=== PATIENT | male | born 2005 | race Caucasian/White ===

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

== ENCOUNTER 2025-09-14 04:09 | Emergency (ER) | payer OTHER, SELFPAY ==
[2025-09-14] VITALS (7 sets, daily range): BP systolic 113–137; BP diastolic 58–77; PULSE 60–77; RESP 14–16; TEMP 36.5–36.8; O2SAT 96–99; BMI 21.5
--- NOTE | 2025-09-14 04:34 | ECG_ITS ---
Test Reason : syncope seizrue Blood Pressure : */* mmHG Vent. Rate : 72 BPM Atrial Rate : 72 BPM P-R Int : 144 ms QRS Dur : 98 ms QT Int : 376 ms P-R-T Axes : 55 61 52 degrees QTcB Int : 411 ms Sinus rhythm with marked sinus arrhythmia Otherwise normal ECG When compared with ECG of 06-Feb-2023 17:11, No significant change was found Referred By: Generic ED Physician Electronically Signed By: Nima Yepez
[2025-09-14 05:06] LABS: MANUAL DIFF FLAG NO
[2025-09-14 05:07] LABS: Hematocrit 43.3 % (42.0-52.0); Hemoglobin 14.4 g/dl (14.0-18.0); Imm Gran Abs Auto 0.02 X10*3/uL (0.00-0.03); Imm Gran Pct Auto 0.2 % (0.0-0.4); Lymphocytes Absolute Auto 3.2 X10*3/uL (1.2-4.9); Mean Corpuscular HGB Conc 33.3 g/dl (31.0-36.0); Mean Corpuscular Hemoglobin 28.2 pg (27.0-33.0); Mean Corpuscular Volume 84.9 fL (80.0-98.0); NRBC Abs Auto 0.000 X10*3/uL (0.0-0.012); NRBC Pct Auto 0.0 /100WBC (0.0-0.2); Platelet Count 234 X10*3/uL (160-400); Red Blood Count 5.10 X10*6/uL (4.60-5.80); White Blood Count 8.8 X10*3/uL (4.8-10.8)
[2025-09-14 05:38] LABS: Troponin-I High Sensitivity < 2.7 ng/L (<3.5-35.0)
[2025-09-14 05:41] LABS: Alanine Aminotransferase 23 U/L (0-40); Albumin Level 4.7 g/dL (3.5-5.0); Alkaline Phosphatase 59 U/L (39-117); Anion Gap 14 (12-20); Aspartate Amino Transferase 26 U/L (5-37); Blood Urea Nitrogen 16 mg/dL (9-16); Calcium 8.8 mg/dL (8.4-10.2); Carbon Dioxide 23 mmol/L (22-29); Chloride 111 mmol/L (96-108); Creatinine Clr Calc Pharmacy 136.5; Estimated Glomerular Filt Rate > 60; Magnesium 2.0 mg/dL (1.6-2.6); Potassium 3.9 mmol/L (3.3-5.1); Sodium 144 mmol/L (135-145); Total Protein 7.1 g/dL (6.5-8.0)
--- OUTSIDE RECORDS SUMMARY | 2025-09-14 07:55 | XMS_ITS | Encounter Summary ---
Author Organization [facility] Address [address] [place] [address] Phone Care Team Providers Care Clinical Physician Assistant Name Role Phone Garrett Baez MD Primary Care Provider [phone] Encounter Details Date Type Department Care Team (Late st Contact Info) Description 07/17/2017 Conversion Encounter [facility] [address] [place] [address] Social History Tobacco Use Types Packs/Day Years Used Date Smoking Tobacco: Never Assessed Sex and Gender Information Value Date Recorded Sex Assigned at Not on file Legal Sex Male 4:59 PM EDT Gender Identity Not on file Sexual Orientation Not on file documented as of this encounter Plan of Treatment Not on file documented as of this encounter Visit Diagnoses Not on filedocumented in this encounter Care Teams Clinical Physician Assistant Relationship Specialty Start Date End Date Garrett Baez MD [address] [place] [address] PCP - General 07/11/17 02/18/23 documented as of this encounter
--- OUTSIDE RECORDS SUMMARY | 2025-09-14 07:55 | XMS_ITS | Encounter Summary ---
Author Organization [facility] Address [address] [place] [id number] Phone Care Team Providers Care Push Connector Assembler Name Role Phone Garrett Baez MD Primary Care Provider [phone] Encounter Details Date Type Department Care Team (Late st Contact Info) Description 05/05/2014 Documentation EM Family Medicine [address] [place] [address] Family Medicine, Physician [address] [place], [place] [id number] Social History Tobacco Use Types Packs/Day Years [...] on filedocumented in this encounter Care Teams Push Connector Assembler Relationship Specialty Start Date End Date Garrett Baez MD [address] [place] [address] NARENDRA Flores [id number] PCP - General 07/11/17 02/18/23 documented as of this encounter
--- OUTSIDE RECORDS SUMMARY | 2025-09-14 07:55 | XMS_ITS | Clinical Summary ---
Author Organization [facility] Address [address] [place] [address] Care Team Providers Care Review Rn Name Role Phone Betty Hernandez MD Primary Care Provider [phone] Source Comments PLEASE NOTE, if this patient is a minor, it may be UNLAWFUL to discuss sensitive information that is contained in these records (such as FAMILY PLANNING, MENTAL HEALTH or SUBSTANCE ABUSE) with the minor patient's parent or other person without the patient's specific authorization.[facility] Allergies Active Allergy Reactions Criticality Noted Date Comments Blackberry Hives 01/07/2017 Cherries Hives 01/07/2017 Medications ammonium lactate (LAC-HYDRIN) 12 % lotion Apply topically 2 (two) times daily 500 g 5 7 Active albuterol sulfate 90 mcg/actuation inhalerIndication s:Mild intermittent asthma without complication Inhale 2 Puffs into the lungs every 4 (four) hours as needed for shortness of breath or wheezing 18 g 3 1 Active ibuprofen 400 mg tablet Take 1 Tablet by mouth 4 (four) times daily as needed for fever or pain 60 Tablet 2 1 Active Active Problems Problem Noted Date Diagnosed Date Intercostal pain 09/07/2019 Overview (09/07/2019): Assessment & Plan (09/07/2019 3:59 PM EDT): eval by cardiology reassuring Likely msk Trial abuterol and ibuprofen prior to exercise Mom to let me know if wanting second opinion given her level of concern Social anxiety disorder 01/14/2017 Assessment & Plan (08/18/2021 4:17 PM EDT): Improved over the past few years. Doing more new things, expanding friend group and horizons. Had a therapist and a mentor until 2 years ago, doing well without Generalized anxiety disorder 01/04/2017 Overview (09/21/2018): Some reports of use of clonidine as early as 4yo. At 10yo mom reinitiated therapy for him to address some anxious feelings and behavior. Trial of Lexapro up to 40MG without effect Assessment & Plan (08/14/2021 6:09 PM EDT): Improved over the past few years. Doing more new things, expanding friend group and horizons. Had a therapist and a mentor until 2 years ago, doing well without Assessment & Plan (09/07/2019 3:54 PM EDT): SCARED evals child and parent congruent with generalized anxiety disorder, social phobia and panic attack Connected with Psych for eval and initiation of Lexapro in 2016 Now continuing with Primary care for monitoring off of medication Continue with therapy outpatient, IHT and labor utilization superintendent loosely established and need to be reconnected, mom agrees Continue off of lexapro at patient request F/u with therapist as planned, Assessment & Plan (09/21/2018 10:48 PM EDT): SCARED evals child and parent congruent with generalized anxiety disorder, social phobia and panic attack Connected with Psych for eval and initiation of Lexapro in 2016 Now continuing with Primary care for monitoring Continue with therapy outpatient, IHT and labor utilization superintendent now established Continue off of lexapro at patient request F/u with therapist as planned, Assessment & Plan (07/06/2018 10:33 PM EDT): SCARED evals child and parent congruent with generalized anxiety disorder, social phobia and panic attack Connected with Psych for eval and initiation of Lexapro in 2016 Now continuing with Primary care for monitoring Continue with therapy outpatient, IHT and labor utilization superintendent now established Continue off of lexapro at patient request F/u 2 month for [facility] Assessment & Plan (10/15/2017 11:28 PM EST): SCARSHAWNA tineo child and parent congruent with generalized anxiety disorder, social phobia and panic attack Connected with Psych for eval and initiation of Lexapro Now continuing with Primary care for monitoring and titration Continue with therapy outpatient, IHT and labor utilization superintendent now established Increase Lexapro to 40mg for remaining symptoms F/u 2 month sooner if any concerns Assessment & Plan (09/04/2017 11:08 PM EDT): SCARED rivka child and parent congruent with generalized anxiety disorder, social phobia and panic attack Connected with Psych for eval and initiation of Lexapro Now continuing with Primary care for monitoring and titration Continue with therapy outpatient, IHT and labor utilization superintendent now established Increase Lexapro to 20mg for remaining symptoms F/u 1 month sooner if any concerns Assessment & Plan (03/12/2017 9:33 PM EDT): SCARED rivka child and parent congruent with generalized anxiety disorder, social phobia and panic attack Connected with Psych for eval and initiation of Lexapro Now returning to Primary care for monitoring and titration Continue with therapy outpatient, IHT and labor utilization superintendent now established Increase Lexapro to 10mg for remaining symptoms F/u 1 month sooner if any concerns, mom will use home supply of 5mg doubling dose for the next 2 weeks to finish those available pills Assessment & Plan (01/09/2017 12:28 AM EST): SCARSHAWNA tineo child and parent congruent with generalized anxiety disorder, social phobia and panic attack Connected with Psych for eval and initiation of Lexapro Continue to follow up with psych, with hope of returning to Primary care if dx and tx plan remain clear and well controlled Continue with therapy outpatient, some referrals for IHT pending F/u 2 months Assessment & Plan (01/04/2017 12:05 AM EST): SCARED rivka child and parent congruent with generalized anxiety disorder, social phobia and panic attack REviewed and refleclteld back dx with pt and mother Celebrated connection with therapist and recommended ongoing work and addition of some exposure threrapy Mom mostly interested in him getting benzo, discussed that I would not recommend their use and instead an SSRI Mom willing to discuss and would appreciate consultation with psych to secure dx and to discuss medications that don't include SSRI WHO to PIC today for parental support and to make sure appropriate IHT is in place F/u 1 onth Mild intermittent asthma without complication Assessment & Plan (09/07/2019 3:53 PM EDT): Asthma is improving with treatment. The patient is experiencing no daytime asthma symptoms. He is experiencing no nighttime asthma symptoms. Plan: Discussed monitoring symptoms and use of quick-relief medications and contacting us early in the course of exacerbations. Warning signs of respiratory distress were reviewed with the patient. Discussed technique for using MDIs and/or nebulizer. letter for housing AC given Continue to use albuterol with pre exercise to see if helping chest pain Assessment & Plan (06/05/2019 2:01 PM EDT): Asthma is improving with treatment. The patient is experiencing no daytime asthma symptoms. He is experiencing no nighttime asthma symptoms. Plan: Discussed monitoring symptoms and use of quick-relief medications and contacting us early in the course of exacerbations. Warning signs of respiratory distress were reviewed with the patient. Discussed technique for using MDIs and/or nebulizer. letter for housing AC given Continue to use albuterol with pre exercise to see if helping chest pain Assessment & Plan (09/21/2018 10:49 PM EDT): Asthma is improving with treatment. The patient is experiencing no daytime asthma symptoms. He is experiencing no nighttime asthma symptoms. Plan: Personalized, written asthma management plan given. Asthma information handout given. Discussed monitoring symptoms and use of quick-relief medications and contacting us early in the course of exacerbations. Warning signs of respiratory distress were reviewed with the patient. Assessment & Plan (09/04/2017 11:05 PM EDT): Asthma is improving with treatment. The patient is experiencing no daytime asthma symptoms. He is experiencing no nighttime asthma symptoms. Plan: Personalized, written asthma management plan given. Asthma information handout given. Discussed monitoring symptoms and use of quick-relief medications and contacting us early in the course of exacerbations. Warning signs of respiratory distress were reviewed with the patient. Overweight 11/10/2016 Assessment & Plan (11/10/2016 11:19 PM EST): Current BMI: Body mass index is 24.45 kg/(m^2). BMI Percentile: 95%ile (Z=1.64) based on CDC 2-20 Years BMI-for-age data using vitals from 10/30/2016. Wt Readings from Last 3 Encounters: 10/30/16 145 lb (65.772 kg) (97 %*, Z = 1.93) 07/23/16 140 lb (63.504 kg) (97 %*, Z = 1.91) 04/12/16 139 lb (63.05 kg) (98 %*, Z = 1.99) * Growth percentiles are based on CDC 2-20 Years data. Blood Pressure: BP Readings from Last 1 Encounters: 10/30/16 116/80 BP Percentile: Blood pressure percentiles are 69% systolic and 91% diastolic based on 2000 NHANES data. Last A1C: No results found for: HGBA1C Last Lipids: No results found for: TRIGLYC, CHOL, HDL, LDL, LDLHDL, CHOLHDL, VLDL, NONHDL Last LFTs: No results found for: PROTEIN, AST, ALT, ALKPHOS, BILI, DIRECTBILI Weight management:The patient was counseled regarding nutrition and physical activity [facility] Referral? NO Nutrition Referral? YES Healthy Weight Referral? NO Labs at next visit if BMI remains 95% or above, just crossed over [id number] reviewed WHO to nutrition for co-visit today Postural dizziness with near syncope 12/14/2015 Assessment & Plan (11/10/2016 11:20 PM EST): Episodes of dizziness - have been improving/decreasing in frequency with increased water/salt intake, and slow changes in posture - negative workup with cardiology - likely vasovagal - discussed possible anxiety component in the past but well connected to therapist and pt and mother think separate issue - encouraged continued increases in hydration if urine still dark Assessment & Plan (02/22/2016 6:00 PM EDT): Episodes of dizziness - have been improving/decreasing in frequency with increased water/salt intake, and slow changes in posture - negative workup with cardiology - likely vasovagal - discussed possible anxiety component with Bigg and mother, both were open to discussing but don't feel cause of problem, though mother is working to connect him with therapist in [place] (given recent move from [place] in August, and associated life changes) - encouraged continued increases in hydration if urine still dark - follow-up in July for [facility]CC or earlier if any concerns Immunizations Immunization Administration Dates Next Due DTAP (DAPTACEL),5 PERTUSSIS ANTIGENS ,01/14/2006,04/24/2005,11/20,2004 HEP B, PED/ADOL ([id number]/RECOMBIVAX-PEDS) 04/24/2005,2004,2004 HPV 9 (Gardasil) 07/23/2016 HPV, QUADRIVALENT 03/12/2017 Hep A, Ped/adol, 2 Dose 04/27/2015,04/20/2014 Hib (PRP-T) 01/14/2006, 5,2004,10/01 INFLUENZA, SEASONAL, INJECTABLE 10/16/20 11,08/24/2009,11/22/2008,10/18,12/02/2007 IPV (IPOL) 08/24/2009, 5,2004,10/01 MENINGOCOCCAL MCV4P (MENACTRA) 08/14/2021,2015 MMR (MMR II/Priorix) 08/24/2009,01/14/2006 Meningococcal B (Trumenba), Recombinant 08/14/2021 PNEUMOCOCCAL CONJUGATE PCV 7 01/14/2006, 04/24/2005,2004,10/01 [facility] State Funded Flu Vaccine 10/16/2011 TDAP 07/23/2016,04/27/2015 Varicella (Varivax), Live Vaccine 08/24/2009, Social History Tobacco Use Types Packs/Day Years Used Date Smoking Tobacco: Passive Smo ke Exposure - Never Smoker Smokeless Tobacco: Never Comments:No Alcohol Use Standard Drinks/Week Comments Not Asked 0 (1 standard drink = 0.6 oz pur e alcohol) Social Connections Answer Date Recorded Connectedness 0 08/07/2024 Financial Resource Strain Answer Date R ecorded Financial Resource Strain 0 2020 Stress Answer Date Recorded Stress 0 2019 Physical Activity Answer Date Recorded Physical Activity 0 2019 Food Insecurity Answer Date Recorded Food 0 09/05/2021 Transportation Needs Answer Date Record ed Transportation 0 09/05/2021 Housing Stability Answer Date Recorded Housing 0 09/05/2021 Safety and Environment Answer Date Gucci rded Safety 0 2019 Utilities Answer Date Recorded Utilities 0 09/05/2021 Employment Answer Date Recorded Stress 0 09/05/2021 Sex and Gender Information Value Date Recorded Sex Assigned at Male 06/24/2021 12:09 PM PDT Legal Sex Male 8:29 PM PST Gender Identity Male 06/24/2021 12:09 PM PDT Sexual Orientation Straight 06/24/2021 12 :09 PM PDT Last Filed Vital Signs Vital Sign Reading Time Taken Comments Blood Pressure 107/64 08/14/2021 3:39 PM EDT Pulse 82 08/14/2021 3:39 PM EDT Temperature 37 C (98.6 F) 11/14/2019 12:22 PM EST Respiratory Rate - - Oxygen Saturation 98% 08/14/2021 3:39 PM EDT Inhaled Oxygen Concentration - - Weight 73.2 kg (161 lb 6.4 oz) 09/05/2021 9:00 A M EDT Height 174.6 cm (5' 8.74 ) 08/14/2021 3:39 PM ED T Body Mass Index 24.02 08/14/2021 3:39 PM EDT Plan of Treatment Not on file Insurance [facility] D[facility] MEDICAID [facility] PLAN Member Subscriber Plan / Payer (Ef fective 2018-Present) Name:Bigg Espñaa Relation to Subscriber:Self Name:Bigg España Payer ID:[id number] Group ID:Not on file Type:Medicaid Address: [facility] [address] [place] [address] Care Teams Review Rn Relationship Specialty Start Date End Date Betty Hernandez MD [address] [place] [id number] PCP - General Pediatrics 07/02/18
--- OUTSIDE RECORDS SUMMARY | 2025-09-14 07:55 | XMS_ITS | Clinical Summary ---
Author Organization [facility] Address [address] [place] [id number] Phone Care Team Providers Care Mid Level Net Developer Name Role Phone Unavailable Primary Care Provider Unavailabl e Immunizations Immunization Administration Dates Next Due DTaP 5 08/24/2009, 6,04/24/2005,2004 ,2004 Hep A, ped/adol 04/27/2015,04/20/2014 Hep B, ped/adol 04/24/2005,2004,2004 Hib (PRP-T) 01/14/2006,04/24/2005,2004 ,2004 IPV 08/24/2009,04/24/2005,2004 ,2004 Influenza Split 10/16/2011 Influenza, injectable, trivalent 08/24/2009,11/01,10/18/2008,12/02/2007 MMR 08/24/2009,01/14/2006 Pneumococcal Conjugate 01/14/2006,04/24/2005,,2004 Tdap 04/27/2015 Varicella 08/24/2009,02/11/2006 Family History Relation Name Status Comments Father Alive Father: Alive a nd well Maternal Grandfather Materna l grandfather: Heart disease Maternal Grandmother Materna l aunt: Migraines Maternal Great-Grandmother Alive m aternal great grand: Sudden /VT under age 55 Mother Alive Mother: Alive a nd well Other Family history of ADD/ADHD, No family history of *Thrombophilia, Family history of Asthma, Family history of Cancer, ovarian, Family history of *Heart Disease, Family history of Diabetes mellitus Social History Tobacco Use Types Packs/Day Years Used Date Smoking Tobacco: Never Assessed Sex and Gender Information Value Date Recorded Sex Assigned at Not on file Legal Sex Male 4:59 PM EDT Gender Identity Not on file Sexual Orientation Not on file Last Filed Vital Signs Vital Sign Reading Time Taken Comments Blood Pressure 116/76 08/19/2015 12:00 AM EDT Pulse 88 08/19/2015 12:00 AM EDT Temperature 35.9 C (96.7 F) 08/19/2015 12:00 AM EDT Respiratory Rate - - Oxygen Saturation - - Inhaled Oxygen Concentration - - Weight 57.2 kg (126 lb 3.2 oz) 08/19/2015 12:00 AM EDT Height 153 cm (5' 0.25 ) 08/19/2015 12:00 AM EDT Body Mass Index 24.44 08/19/2015 12:00 AM EDT Plan of Treatment Health Maintenance Due Date Last Done Comments HPV Vaccines (1 - Male 3-dose series) 2019 Men B Vaccine (1 of 2 - Standard) 2020 DTaP,Tdap,and Td Vaccines (7 - Td or Tdap) 04/27/2025 04/27/2015, 08/24/2009, 01/14/2006, Additional history exists Influenza Vaccines (#1) 2025 10/16/20 11, 08/24/2009, 11/22/2008, Additional history exists COVID-19 Vaccine (2024- season) 2025 Hepatitis B Vaccines Completed 04/24/2005, 2004, 2004 HIB Vaccines Completed 01/14/2006, 04/01, 2004, Additional history exists Pneumococcal Vaccine Completed 01/14/2006, 04/24/2005, 2004, Additional history exists IPV Vaccines Completed 08/24/2009, 04/01, 2004, Additional history exists MMR Vaccines Completed 08/24/2009, 01/14/2006 Varicella Vaccines Completed 08/24/2009, 02/11/2006 Hepatitis A Vaccines Completed 04/27/2015, 04/20/20 14 Meningococcal Vaccine Aged Out No rosales eugene eligible based on patient's age to complete this topic
--- OUTSIDE RECORDS SUMMARY | 2025-09-14 07:55 | XMS_ITS | Encounter Summary ---
Author Organization [facility] Address [address] [place] [address] Phone Care Team Providers Care Print Shop Stenographer Name Role Phone Garrett Baez MD Primary Care Provider [phone] Encounter Details Date Type Department Care Team (Late st Contact Info) Description 04/07/2014 Documentation EM Family Medicine [address] [place] [address] Family Medicine, Physician [address] [place], [place] [id number] Social History Tobacco Use Types Packs/Day Years [...] on filedocumented in this encounter Care Teams Print Shop Stenographer Relationship Specialty Start Date End Date Garrett Baez MD [address] [place] [address] NARENDRA Flores [id number] PCP - General 07/11/17 02/18/23 documented as of this encounter
[2025-09-14 07:59] LABS: Appearance Urine Clear; Glucose Urine UA Negative (Negative); PH 6.0 (5.0-9.0); Specific Gravity - Urine >= 1.030 (1.005-1.025)
--- NOTE | 2025-09-14 09:13 | ED.GENADULT ---
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 Patient reports that he was resting in bed, and heard his mother get up to get ready for her workday and he got up out of bed slowly, started to walk towards the bathroom to say hello and suddenly felt dizzy and nauseated. Because of the symptoms he sat down on the toilet. Mother witnessed the episode and reports his eyes rolled back into his head and he began shaking for approximately 30-35 seconds. Patient was briefly confused afterwards and experienced significant nausea, fatigue, and ringing in the ears. Patient reports that shortly after this episode, he remembers waking up on the bathroom floor speaking to his mother about what had happened. Denies tongue biting, incontinence, or head trauma. States this episode felt different from prior syncopal episodes he has had in the past. No prior seizure history. Denies recent illness, fever, headache, visual changes, chest pain, shortness of breath, vomiting, or diarrhea. He does report taking daily estrogen which he had started in March of 2025 for gender dysphoria but has no other medical history. Denies alcohol, tobacco, or illicit drug use. Patient reports that he is otherwise feeling well, does feel tired but otherwise no longer dizzy or nauseated. MD complaint: ?Seizure Onset (ago): hour(s) Related Data Home Medications ?Medication ?Instructions ?Recorded ?Confirmed No Known Home Meds 02/06/23 04/30/23 Allergies Allergy/AdvReac Type Severity Reaction Status Date / Time blackberry (BLACKBERRY) Allergy Unknown UNKNOWN Verified 09/14/25 04:34 [place] Allergy Unknown HIVES Verified 09/14/25 04:34 Review of Systems Review of Systems: Constitutional : No Fever, No Chills ENT/Mouth : No sore throat, No Rhinorrhea Eyes: No Eye Pain, No Swelling, No Redness Cardiovascular : No Chest Pain, No SOB Respiratory : No Cough, No Sputum Gastrointestinal : No Nausea, No Vomiting, No Diarrhea, No abdominal Pain Genitourinary : No Dysuria, No Hematuria Musculoskeletal : No joint pain, No Myalgias, No Joint Swelling Skin : No Skin Lesions, Neuro : No Weakness, No Numbness, No Headache All other systems reviewed and are negative Yes all other systems are reviewed and are negative Constitutional: Constitutional: Reports as per [facility] Family History Family History Mother No problems noted. Social History Social History (System 12/23/24 @ 12:45 by Norma Reeder) Household Members: Family Housing: House Do you presently have visiting nurse or other home services: No Alcohol intake: never Patient Tobacco Use Status: Never used Tobacco Smoked in Last 30 Days: No e-Cigarette/Vaping Use: Never Used Use of substances other than those prescribed or required for medical reasons: No Advance Directives: No Advance Directives Information Provided: Yes Do you have a plan to hurt others: No Plan service: No (in [employer], [employer]) Current occupational status: other Cognitive needs: No Hearing needs: No Vision needs: Yes Physical Exam ED Vital Signs: Vital Signs - 24 hr 09/14/25 04:31 09/14/25 06:42 09/14/25 09:03 Temperature 97.7 F 98.3 F Pulse Rate 67 72 70 Respiratory Rate 16 16 14 Blood Pressure 128/70 137/60 113/67 Pulse Oximetry 99 98 98 Oxygen Delivery Method Room Air Room Air Room Air 09/14/25 09:22 09/14/25 09:25 09/14/25 09:28 Temperature Pulse Rate 65 66 77 Respiratory Rate Blood Pressure 113/58 L 119/77 121/72 Pulse Oximetry Oxygen Delivery Method BMI result Body Mass Index 21.5 Const General: cooperative, comfortable and no acute distress Orientation/consciousness: patient oriented x3 Limitations: no limitations HENMT Head: Yes normal to inspection, Yes normocephalic and Yes atraumatic Ears: hearing grossly normal bilaterally General nose exam: Normal external nose present Face and sinus: Yes normal facial exam Mouth: Normal oral and palatal mucosa present, oropharynx normal and moist mucous membranes Throat: Yes posterior oropharynx normal Eyes General: appearance normal, both eyes and all related structures Eyelids: Yes eyelids normal Conjunctivae: conjunctivae normal Sclerae: sclerae normal Pupils: Equal, round and reactive pupils present EOM: EOMs intact bilaterally Neck Neck: Yes normal visual inspection, Yes full ROM and Yes no lymphadenopathy Lymphatic: no lymphadenopathy noted Chest Chest palpation & inspection: normal inspection of the chest Resp Effort & Inspection: normal respiratory effort and able to speak in complete sentences Auscultation: clear to auscultation bilaterally, no crackles, no rales, no rhonchi and no wheezes Cardio Rate: regular rate Rhythm: regular rhythm Heart sounds: S1 normal heart sound present and S2 normal heart sound present GI Inspection: Yes normal to inspection Skin General skin exam: no rashes or lesions noted Trauma: no lacerations or abrasions Wounds: no wounds Neuro General: patient oriented x3 and moves all extremities Cranial nerves: Yes Equal, round and reactive pupils present Cognition (Neuro): normal cognition Gait exam (Neuro): Normal gait present Motor exam (neuro): 5/5 motor strength present throughout and Pronator motor function not present Coordination: [id number] test normal Pupils: Normal pupillary reactivity/response: bilateral Extrem General: Yes normal to inspection Right upper extremity: normal to inspection Left upper extremity: normal to inspection Right lower extremity: normal to inspection Left lower extremity: normal to inspection Medications Administered Discontinued Medications Generic Name Dose Route Start Last Admin Trade Name Freq PRN Reason Stop Dose Admin Ondansetron HCl 4 mg 09/14/25 06:44 09/14/25 06:46 Ondansetron Odt 4 Mg Tab.Rapdis TRANSLINGU 09/14/25 06:45 4 mg ONCE ONE Administration Medical Decision Making Medical Decision Making [facility] Narrative: 20 year old male, with a 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 Patient initially arrived to the emergency department at 4:30 a.m. however given prolonged ED wait times, I did not go and assess patient until 9:00 a.m.. Patient is currently asymptomatic, feeling well, neurologically intact with no focal deficits. Patient had a witnessed ? Seizure-like activity versus syncopal episode which occurred this morning at 3:30 a.m.. This was witnessed by his mother. He has a history of syncopal episodes however mother reports that this was different given that he had his eyes rolled back. Patient did not have any incontinence or tongue biting episode. Patient has been seen here in the emergency room for syncopal episodes and has been worked up by Cardiology in the past. He had no chest pain or shortness of breath prior to this episode. Differential diagnoses include syncope, electrolyte derangement, arrhythmia, seizure. Labs were obtained prior to my evaluation, he has no leukocytosis, stable H&H, chemistry revealing no significant electrolyte derangement. Troponin negative. Will repeat. Will also add CPK. Urine does not appear to be infectious, high specific gravity. EKG sinus rhythm with marked sinus arrhythmia at a ventricular rate of 72 beats per minute, [place] interval 144, QT QTC 376/411, no STEMI. 11:50 AM 09/14/2025 (Jaki Byrd PA-C): Troponin x2 negative. CPK within normal limits. Discussed overall workup with my attending physician, Dr. Mackenzie Given that patient is completely asymptomatic, vital signs have remained stable, and he has no seizure like activity throughout his entire ER stay, patient can be discharged home with strict return precautions. Given neurology follow-up. Patient understands and agrees with plan. Patient stable for discharge. Differential Diagnosis Differential Diagnoses: The differential diagnosis associated with the presentation includes See above Lab Data MDM Lab Attestation statement: I reviewed the patient's lab results. See MDM 09/14/25 05:00 09/14/25 05:00 Labs: Lab Results 09/14/25 09/14/25 09/14/25 Range/Units 05:00 07:49 09:59 WBC 8.8 (4.8-10.8) X10*3/uL RBC 5.10 (4.60-5.80) X10*6/uL Hgb 14.4 (14.0-18.0) g/dl Hct 43.3 (42.0-52.0) % MCV 84.9 (80.0-98.0) fL MCH 28.2 (27.0-33.0) pg MCHC 33.3 (31.0-36.0) g/dl RDW 12.3 (11.0-16.0) % Plt Count 234 (160-400) X10*3/uL MPV 11.1 (9.4-12.4) fL Immature Gran % (Auto) 0.2 (0.0-0.4) % Neut % (Auto) 52.3 (45-73) % Lymph % (Auto) 36.0 (20-40) % [place] % (Auto) 7.0 (2-11) % Eos % (Auto) 3.9 (0-4) % Baso % (Auto) 0.6 (0-2) % Lymph # (Auto) 3.2 (1.2-4.9) X10*3/uL [place] # (Auto) 0.6 (0.1-1.2) X10*3/uL Eos # (Auto) 0.3 (0.0-0.4) X10*3/uL Baso # (Auto) 0.1 (0.0-0.2) X10*3/uL Abs Immat Gran (auto) 0.02 (0.00-0.03) X10*3/uL Absolute Neuts (auto) 4.6 (2.0-8.3) x10*3/uL Absolute Nucleated RBC 0.000 (0.0-0.012) X10*3/uL Nucleated RBC % (auto) 0.0 (0.0-0.2) /100WBC Sodium 144 (135-145) mmol/L Potassium 3.9 (3.3-5.1) mmol/L Chloride 111 H (96-108) mmol/L Carbon Dioxide 23 (22-29) mmol/L Anion Gap 14 (12-20) BUN 16 (9-16) mg/dL Creatinine 0.80 (0.5-1.4) mg/dL Estim Creat Clear Calc 136.5 Estimated GFR > 60 Random Glucose 97 (60-115) mg/dL Calcium 8.8 D (8.4-10.2) mg/dL Magnesium 2.0 (1.6-2.6) mg/dL Total Bilirubin 0.5 (0.0-1.0) mg/dL AST 26 (5-37) U/L ALT 23 (0-40) U/L Alkaline Phosphatase 59 (39-117) U/L Total Creatine Kinase 40 (38-174) U/L Troponin I High Sens < 2.7 D < 2.7 (<3.5-35.0) ng/L Total Protein 7.1 (6.5-8.0) g/dL Albumin 4.7 (3.5-5.0) g/dL Urine Color Dark Yellow Urine Appearance Clear Urine pH 6.0 (5.0-9.0) Ur Specific [place] >= 1.030 H (1.005-1.025) Urine Protein Trace (Neg-Trace) mg/dL Urine Glucose (UA) Negative (Negative) mg/dL Urine Ketones Trace (Negative) mg/dL Urine Blood Negative (Negative) Urine Nitrite Negative (Negative) Ur Leukocyte Esterase Negative (Negative) Urine RBC 0-2 (0-2) /HPF Urine WBC 0-5 (0-5) /HPF Ur Squamous Epith Cells 0-2 (0-2) /HPF Urine Bacteria None Seen (None Seen) Hyaline Casts 0-2 (0-2) /LPF Independent Interpretation I performed an independent interpretation of an: EKG Interpretation: EKG sinus rhythm with marked sinus arrhythmia at a ventricular rate of 72 beats per minute, [place] interval 144, QT QTC 376/411, no STEMI. Discharge Plan Discharge Clinical Impression: Syncope Instructions: Near Syncope (ED), Syncope (ED) Additional Instructions: You were seen in the emergency department after a collapsing episode. It is unclear if you had a syncopal episode and or a seizure. Your blood work today was reassuring. Your EKG was normal. Please follow-up with your primary care physician regarding this visit. Drink plenty of fluids get plenty of rest. Continue eating small meals throughout the day. Avoid quick positional changes as this can in dors your symptoms. I am also giving you a referral to Neurology if you so wish to have further workup outpatient. If any new or worsening symptoms occur including but not limited to severe chest pain, shortness for breath, please seek emergent care. Prescriptions: No Action No Known Home Meds Referrals: [facility] Neuro/Sleep [Provider Group] Referral Note: ?seizure like activity Print Language: Burkinan
[2025-09-14 10:27] LABS: Troponin-I High Sensitivity < 2.7 ng/L (<3.5-35.0)
== END 2025-09-14 11:55 | disposition home or self-care (01) ==
PROVIDERS: Physician Assistant Medical; Emergency Provider Emergency Medicine; PCP Physician Assistant
DX: R55 Syncope and collapse (principal); R42 Dizziness and giddiness; R11.2 Nausea with vomiting, unspecified; I49.8 Other specified cardiac arrhythmias; Z79.899 Other long term (current) drug therapy
CPT/HCPCS: 36415; 80053; 81001; 82550; 83735; 84484; 85025; 93005; 99283; 99285

== ENCOUNTER → 2025-09-14 04:34 | Outpatient (BNV) | payer OTHER, SELFPAY | PROVIDERS: Emergency Provider Emergency Medicine; PCP Physician Assistant; Visit Provider Internal Medicine Cardiovascular Disease | DX: R56.9 Unspecified convulsions (principal); R55 Syncope and collapse | CPT/HCPCS: 93010 ==

== ENCOUNTER 2025-10-05 10:54 | Outpatient (AMB) | payer OTHER, SELFPAY ==
[2025-10-05 10:57] VITALS: BP 132/84; PULSE 90; TEMP 36.4; O2SAT 98; BMI 21.4
--- NOTE | 2025-10-05 10:57 | A.OFFPC_ITS ---
Vital Signs 10/05/25 10:57 Height 5 ft 9 in Weight 145 lb 4 oz BMI 21.4 BP 132/84 Blood Pressure Location Lt brachial Position Sitting Pulse 90 Pulse Source Pulse Oximeter Temp 97.5 F Temp Source Temporal Artery Scan Pulse Oximetry (%) 98 Oxygen Delivery Method Room Air Intake Visit Reasons: F/U care , referral Accompanied by: Mother Allergies blackberry (BLACKBERRY) Allergy (Unknown, Verified 10/05/25 11:16) UNKNOWN [place] Allergy (Unknown, Verified 10/05/25 11:16) HIVES Medication List - Last Reconciled 10/05/25 by Jarvis Cisneros PA-C estradiol mg PO Tobacco use date assessed: 10/05/25 Dental Screening Dental Screen Date: 10/05/25 Did you have a dental visit in the last 12 months?: Yes Did you have a dental problem in the last 6 months where you did not have access to dental care?: No Was dental information given to patient?: Patient has dentist HPI F/U care , referral HPI Details Patient is a 20-year-old person here today for follow up visit. Have not seen him in over 2 years. Patient has gender dysphoria syndrome. A few weeks ago, the patient experienced an event characterized by his eyes rolling back, body rigidity, and unresponsiveness, followed by a postictal state of confusion, fear, and loud ear ringing. Preceding this event, he felt very dizzy with nausea, and afterward experienced tingling on his left side. This was the first time such an episode has occurred. The patient attributes the recent episode to severe sleep deprivation in the preceding weeks, with some nights of no sleep at all. He reports chronic trouble falling asleep, currently taking melatonin 10 mg with limited effect.. He also endorses daytime exhaustion, which he partially attributes to depression. Tinnitus: He has a history of chronic tinnitus, which began after a series of infections following a tonsillectomy during his time in the [place]. 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 [facility] Family History Mother No problems noted. Social History Household Members: Family Housing: House Do you presently have visiting nurse or other home services: No Alcohol intake: never Patient Tobacco Use Status: Never used Tobacco e-Cigarette/Vaping Use: Currently Using service: No (in [employer], [employer]) Current occupational status: other Cognitive needs: No Hearing needs: No Vision needs: Yes Questionnaire PHQ-9 Over the last 2 weeks, how often have you been bothered by any of the following problems? 1. Little interest or pleasure in doing things: several days 2. Feeling down, depressed, or hopeless: several days 3. Trouble falling or staying asleep, or sleeping too much: several days 4. Feeling tired or having little energy: more than half the days 5. Poor appetite or overeating: not at all 6. Feeling bad about yourself - or that you are a failure or have let yourself or your family down: not at all 7. Trouble concentrating on things, such as reading the newspaper or watching television: several days 8. Moving or speaking so slowly that other people could have noticed. Or the opposite - being so fidgety or restless that you have been moving around a lot more than usual: not at all 9. Thoughts that you would be better off or of hurting yourself in some way: not at all Total score: 6 Depression Screening Interpretation: Positive Depression Screening Follow-up: Existing condition Depression Screening Done: Yes 81187 - PHQ-9 Billing: Yes Source: Developed by Drs. Dejan Moore, Fannie Breen, Rolando Bolden and colleagues, with an educational leonardo from [email or web address]. Thrive Questionnaire Date Thrive assessed: 10/05/25 I am a: Patient What is your living situation today?: I have a steady place to live Within the past 12 months, did the food you bought not last and you didn't have the money to get more?: Never true Within the past 12 months, did you worry whether your food would run out before you got money to buy more?: Sometimes True Do you have trouble paying for medicines?: No Do you have trouble getting transportation to medical appointments?: No Do you have trouble paying your heating and electricity bill?: No Do you have trouble taking care of your child, family member or friend?: No Do you have trouble with day-to-day activities such as bathing, preparing meals, shopping, managing finances, etc.?: No Are you currently unemployed and looking for a job?: Yes Are you interested in more education?: No Please select the resources that you would like help with: None Currently or been in a relationship where the following occur: No concerns reported THRIVE Score: 1 AUDIT C Alcohol Use Questionnaire (AUDIT-C) 1. How often do you have a drink containing alcohol?: Monthly or less 2. How many drinks containing alcohol do you have on a typical day when you are drinking?: 1 or 2 3. How often do you have six or more drinks on one occasion?: Less than monthly Total Score: 2 YONY-7 AMB Questionnaire YONY-7 Date YONY - 7 assessed: 10/05/25 Feeling nervous, anxious, or on edge: 2 = More than half the days Not being able to stop or control worryin = More than half the days Worrying too much about different things: 3 = Nearly every day Trouble relaxin = Nearly every day Being so restless that it is hard to sit still: 1 = Several days Becoming easily annoyed or irritable: 3 = Nearly every day Feeling afraid as if something awful might happen: 1 = Several days Total YONY-7 score (0-4 normal; 5-9 mild; 10-14 moderate; 15-21 severe): 15 Source: Developed by Drs. Dejan Moore, Fannie Breen, Rolando Bolden and colleagues, with an educational leonardo from [email or web address]. YONY-7 Assessment Billing YONY-7 Assessment Tool: YOYN-7 Assessment 34409 Review of Systems Const Reports headache(s) and Reports lethargy Eyes Denies loss of vision ENT Denies vertigo, Denies dizziness, Reports headache(s) and Denies sore throat Card Denies chest pain, Denies leg edema and Denies lightheadedness Resp Denies cough, Denies hemoptysis and Denies wheezing GI Denies abdominal pain, Denies melena, Denies constipation, Denies diarrhea and Denies vomiting Denies dysuria, Denies urinary frequency and Denies urinary urgency Musc Denies arthralgias, Denies joint swelling, Denies numbness and Denies tingling Neuro Denies Abnormal speech present, Denies behavioral changes, Denies vertigo, Denies dizziness, Reports headache(s), Denies loss of vision, Denies memory loss, Denies numbness and Denies tingling Psych Reports anxiety, Denies behavioral changes, Reports depression, Reports anhedonia, Denies memory loss and Denies panic attacks Grant/Lymph Denies easy bleeding and Denies easy bruising Aller/Immun Denies wheezing Physical exam (Primary Care) Vital Signs: Last Vital Signs Temp 97.5 F 10/05/25 10:57 Pulse 90 10/05/25 10:57 BP 132/84 10/05/25 10:57 Pulse Ox 98 10/05/25 10:57 Oxygen Delivery Method Room Air 10/05/25 10:57 BMI result Body Mass Index 21.4 Tobacco/Smoking Status: Tobacco use Status Tobacco use date assessed 10/05/25 10/05/25 11:01 Patient Tobacco Use Status Never used Tobacco 10/05/25 11:01 e-Cigarette/Vaping Use Currently Using 10/05/25 11:01 PHQ-9: PHQ-9 Score PHQ-9: Total score 6 10/05/25 11:01 Depression Screening Interpretation: Positive Depression Screening Follow-up: Existing condition Thrive Assessment: Date of Thrive Assessment Date Thrive assessed 10/05/25 10/05/25 11:01 Currently or been in a relationship where the following occur: No concerns reported Const General: healthy appearing, no acute distress, alert and awake Nutritional Appearance: well nourished Orientation/consciousness: oriented to person, oriented to place and oriented to time HENMT Ears: TM's normal bilaterally General nose exam: Normal nasal mucous membranes and turbinates present Eyes Conjunctivae: conjunctivae normal Sclerae: sclerae normal Pupils: Equal, round and reactive pupils present Neck Neck: Yes no lymphadenopathy and Yes no JVD Thyroid: Thyroid normal Carotids: no bruits Resp Effort & Inspection: normal respiratory effort and not tachypneic Auscultation: no crackles, no rales, no rhonchi and no wheezes Cardio Rate: regular rate Rhythm: regular rhythm Heart sounds: no murmurs and normal S1 and S2 GI Palpation (GI): Soft to palpation, nontender, no hepatomegaly and no splenomegaly Auscultation: normal bowel sounds Skin General skin exam: no rashes or lesions noted and dry skin Neuro General: oriented to person, oriented to place and oriented to time Cranial nerves: Yes Equal, round and reactive pupils present Speech: No Abnormal speech present Gait exam (Neuro): Normal gait present Motor exam (neuro): no tremor noted Extrem Right upper extremity: full ROM Left upper extremity: full ROM Right lower extremity: full ROM; no edema Left lower extremity: full ROM; no edema Psych Mental Status: mental status grossly normal Speech and movement: Normal speech and movement present Affect: normal affect Attitude: cooperative Thought process: Normal thought process present Coding Level of Care Code Est Pt Level 4 (78928) Diagnoses Seizure-like activity R56.9 Primary insomnia F51.01 Insomnia type: primary Sensorineural hearing loss (SNHL) of left ear, unspecified hearing status on contralateral side H90.5 Contralateral hearing status: unspecified MDD (major depressive disorder), recurrent episode, moderate F33.1 Additional Codes YONY-7 Assessment Billing - YONY-7 Assessment Tool: YONY-7 Assessment 16106 ([id number]) PHQ-9 - 51123 - PHQ-9 Billing: Yes ([id number]) Assessment & Plan Assessment & Plan (1) Seizure-like activity: Code(s): R56.9 - Unspecified convulsions Category: Medical Plan: To further evaluate the recent seizure-like episode and associated symptoms of headaches, syncope, and left-sided tingling, a brain MRI will be ordered to rule out any intracranial pathology. A referral will be placed to Neurology for evaluation of a possible seizure disorder and to determine the need for anti- seizure medication. This neurologist also specializes in sleep medicine, which will be beneficial.. Given the significant sleep deprivation, daytime fatigue, and potential contribution to the seizure-like event, a home sleep study will be ordered to investigate for possible sleep apnea. For management of insomnia, a prescription for trazodone 50 mg will be sent to the pharmacy, with instructions to start with a half tablet (25 mg) at bedtime. This medication may also assist with his underlying depression. (2) Insomnia: Code(s): G47.00 - Insomnia, unspecified Category: Medical Qualifiers: Insomnia type: primary Qualified Code(s): F51.01 - Primary insomnia Plan: As above will trial trazodone before bed to help him with sleep. (3) Left SNHL: Code(s): H90.5 - Unspecified sensorineural hearing loss Category: Medical Qualifiers: Contralateral hearing status: unspecified Qualified Code(s): H90.5 - Unspecified sensorineural hearing loss Plan: For his chronic tinnitus, a referral to Audiology will be ordered for further evaluation and to explore potential new treatments. (4) MDD (major depressive disorder), recurrent episode, moderate: Code(s): F33.1 - Major depressive disorder, recurrent, moderate Category: Medical Plan: Patient's PHQ-9 score positive for depression which has been existing condition for him. He is interested in speaking with a mental health therapist though is still on a waiting list. Will start trazodone to help with sleep in hopes that regulate mood and energy during the day. Orders: Orders MR head/brain wo con Today R55 - Syncope and collapse, R56.9 - Unspecified convulsions RT home sleep study Today R56.9 - Unspecified convulsions Referrals Neurology Referral R56.9 - Unspecified convulsions Speech and Hearing Referral H90.5 - Unspecified sensorineural hearing loss Medications: New trazodone 50 mg PO BEDTIME 30 tabs 0RF 30 days F51.01 - Primary insomnia
== END 2025-10-05 11:49 | disposition home or self-care (01) ==
PROVIDERS: PCP Physician Assistant; Visit Provider Physician Assistant
DX: R56.9 Unspecified convulsions (principal); F33.1 Major depressive disorder, recurrent, moderate; F51.01 Primary insomnia; H90.5 Unspecified sensorineural hearing loss

== ENCOUNTER → 2025-10-05 10:54 | Outpatient (BNVA) | payer OTHER, SELFPAY | PROVIDERS: PCP Physician Assistant; Visit Provider Physician Assistant | DX: F51.01 Primary insomnia (principal); R56.9 Unspecified convulsions; H90.5 Unspecified sensorineural hearing loss; F33.1 Major depressive disorder, recurrent, moderate | CPT/HCPCS: 96127; 99212 ==

== ENCOUNTER 2025-11-22 14:02 | Outpatient (AMB) | payer OTHER, SELFPAY ==
--- NOTE | 2025-11-22 14:35 | MHC.PC.OV ---
Vital Signs 11/22/25 14:38 Height 5 ft 9 in Weight 145 lb BMI 21.4 BP 132/60 Blood Pressure Location Lt brachial Position Sitting Pulse 67 Pulse Source Pulse Oximeter Temp 97.1 F Temp Source Temporal Artery Scan Pulse Oximetry (%) 99 Oxygen Delivery Method Room Air Intake Visit Reasons: f/u Mental health Intake Note: Patient is here to follow up on Mental health. Framework Developer Required: No Musculoskeletal Physiotherapist: Not Required per policy Accompanied by: Self / Same As Patient Allergies blackberry (BLACKBERRY) Allergy (Unknown, Verified 11/22/25 14:47) UNKNOWN [place] Allergy (Unknown, Verified 11/22/25 14:47) HIVES Medication List - Last Reconciled 11/22/25 by Jarvis Cisneros PA-C estradiol valerate 4 mg IM QWEEK trazodone 50 mg PO BEDTIME 30 days Tobacco use date assessed: 11/22/25 Dental Screening Dental Screen Date: 10/05/25 HPI f/u Mental health HPI Details Patient is a 20-year-old person here today for follow up visit. Patient has a past medical history significant for major depressive disorder, insomnia, gender dysphoria. Major depressive disorder: At last visit we discussed his insomnia was willing to start trazodone to help sleep. He was previously started on trazodone and has been taking 25 mg nightly. He states it is hard for him to determine the medication's efficacy but reports he has had fewer nights where he could not sleep at all. Regarding side effects, the patient initially experienced significant eye strain, which has resolved over the past couple of weeks. He attempted to increase the dose to 50 mg on one occasion, which caused palpitations, an inability to sleep, and presyncopal symptoms upon standing, prompting him to return to the 25 mg dose. For mental health support, he started seeing a therapist at the beginning of this month and will begin weekly sessions in December. He notes his sleep has been disrupted over the past week due to a new cat. [facility] Surgical History No pertinent past surgical history Family History Mother No problems noted. Other Mental health disorder Substance use disorder Social History Household Members: Family Housing: House Do you presently have visiting nurse or other home services: No Alcohol intake: current Alcohol intake frequency: holidays/special occasions only Patient Tobacco Use Status: Never used Tobacco e-Cigarette/Vaping Use: Currently Using Frequency of e-Cigarette/Vaping Use: Daily Second Hand Smoke Exposure: No service: No (in [employer], [employer]) Current occupational status: other Cognitive needs: No Hearing needs: No Vision needs: Yes Questionnaire PHQ-9 Over the last 2 weeks, how often have you been bothered by any of the following problems? 1. Little interest or pleasure in doing things: more than half the days 2. Feeling down, depressed, or hopeless: more than half the days 3. Trouble falling or staying asleep, or sleeping too much: several days 4. Feeling tired or having little energy: several days 5. Poor appetite or overeating: not at all 6. Feeling bad about yourself - or that you are a failure or have let yourself or your family down: several days 7. Trouble concentrating on things, such as reading the newspaper or watching television: more than half the days 8. Moving or speaking so slowly that other people could have noticed. Or the opposite - being so fidgety or restless that you have been moving around a lot more than usual: not at all 9. Thoughts that you would be better off or of hurting yourself in some way: not at all Total score: 9 Depression Screening Interpretation: Positive Depression Screening Follow-up: Existing condition and In treatment Depression Screening Done: Yes 32993 - PHQ-9 Billing: Yes Source: Developed by Drs. Dejan Moore, Fannie Breen, Rolando Bolden and colleagues, with an educational leonardo from [employer]. Thrive Questionnaire Date Thrive assessed: 10/05/25 I am a: Patient What is your living situation today?: I have a steady place to live Within the past 12 months, did the food you bought not last and you didn't have the money to get more?: Never true Within the past 12 months, did you worry whether your food would run out before you got money to buy more?: Sometimes True Do you have trouble paying for medicines?: No Do you have trouble getting transportation to medical appointments?: No Do you have trouble paying your heating and electricity bill?: No Do you have trouble taking care of your child, family member or friend?: No Do you have trouble with day-to-day activities such as bathing, preparing meals, shopping, managing finances, etc.?: No Are you currently unemployed and looking for a job?: Yes Are you interested in more education?: No Currently or been in a relationship where the following occur: No concerns reported THRIVE Score: 1 YONY-7 AMB Questionnaire YONY-7 Date YONY - 7 assessed: 11/22/25 Feeling nervous, anxious, or on edge: 2 = More than half the days Not being able to stop or control worryin = Several days Worrying too much about different things: 1 = Several days Trouble relaxin = More than half the days Being so restless that it is hard to sit still: 0 = Not at all Becoming easily annoyed or irritable: 1 = Several days Feeling afraid as if something awful might happen: 1 = Several days Total YONY-7 score (0-4 normal; 5-9 mild; 10-14 moderate; 15-21 severe): 8 Source: Developed by Drs. Dejan Moore, Fannie Breen, Rolando Bolden and colleagues, with an educational leonardo from [employer]. YONY-7 Assessment Billing YONY-7 Assessment Tool: YONY-7 Assessment 17837 Review of Systems Const Denies headache(s) Eyes Denies loss of vision ENT Denies vertigo, Denies dizziness, Denies headache(s) and Denies sore throat Card Denies chest pain, Denies leg edema and Denies lightheadedness Resp Denies cough, Denies hemoptysis and Denies wheezing GI Denies abdominal pain, Denies melena, Denies constipation, Denies diarrhea and Denies vomiting Denies dysuria, Denies urinary frequency and Denies urinary urgency Musc Denies arthralgias, Denies joint swelling, Denies numbness and Denies tingling Neuro Denies Abnormal speech present, Denies behavioral changes, Denies vertigo, Denies dizziness, Denies headache(s), Denies loss of vision, Denies memory loss, Denies numbness and Denies tingling Psych Denies anxiety, Denies behavioral changes, Denies depression, Denies memory loss and Denies panic attacks Grant/Lymph Denies easy bleeding and Denies easy bruising Aller/Immun Denies wheezing Physical exam (Primary Care) Vital Signs: Last Vital Signs Temp 97.1 F 11/22/25 14:38 Pulse 67 11/22/25 14:38 BP 132/60 11/22/25 14:38 Pulse Ox 99 11/22/25 14:38 Oxygen Delivery Method Room Air 11/22/25 14:38 BMI result Body Mass Index 21.4 Tobacco/Smoking Status: Tobacco use Status Tobacco use date assessed 11/22/25 11/22/25 14:45 Patient Tobacco Use Status Never used Tobacco 11/22/25 14:45 e-Cigarette/Vaping Use Currently Using 11/22/25 14:45 PHQ-9: PHQ-9 Score PHQ-9: Total score 9 11/22/25 14:45 Depression Screening Interpretation: Positive Depression Screening Follow-up: Existing condition and In treatment Thrive Assessment: Date of Thrive Assessment Date Thrive assessed 10/05/25 11/22/25 14:45 Currently or been in a relationship where the following occur: No concerns reported Const General: healthy appearing, no acute distress, alert and awake Nutritional Appearance: well nourished Orientation/consciousness: oriented to person, oriented to place and oriented to time HENMT Ears: TM's normal bilaterally General nose exam: Normal nasal mucous membranes and turbinates present Eyes Conjunctivae: conjunctivae normal Sclerae: sclerae normal Pupils: Equal, round and reactive pupils present Neck Neck: Yes no lymphadenopathy and Yes no JVD Thyroid: Thyroid normal Carotids: no bruits Resp Effort & Inspection: normal respiratory effort and not tachypneic Auscultation: no crackles, no rales, no rhonchi and no wheezes Cardio Rate: regular rate Rhythm: regular rhythm Heart sounds: no murmurs and normal S1 and S2 GI Palpation (GI): Soft to palpation, nontender, no hepatomegaly and no splenomegaly Auscultation: normal bowel sounds Skin General skin exam: no rashes or lesions noted and dry skin Neuro General: oriented to person, oriented to place and oriented to time Cranial nerves: Yes Equal, round and reactive pupils present Speech: No Abnormal speech present Gait exam (Neuro): Normal gait present Motor exam (neuro): no tremor noted Extrem Right upper extremity: full ROM Left upper extremity: full ROM Right lower extremity: full ROM; no edema Left lower extremity: full ROM; no edema Psych Mental Status: mental status grossly normal Speech and movement: Normal speech and movement present Affect: normal affect Attitude: cooperative Thought process: Normal thought process present Coding Level of Care Code Est Pt Level 3 (14087) Diagnoses Primary insomnia F51.01 Insomnia type: primary MDD (major depressive disorder), recurrent episode, moderate F33.1 Additional Codes PHQ-9 - 20023 - PHQ-9 Billing: Yes ([id number]) YONY-7 Assessment Billing - YONY-7 Assessment Tool: YONY-7 Assessment 00799 ([id number]) Assessment & Plan Assessment & Plan (1) Insomnia: Code(s): G47.00 - Insomnia, unspecified Category: Medical Qualifiers: Insomnia type: primary Qualified Code(s): F51.01 - Primary insomnia Plan: The patient will continue taking trazodone at the current dose of 25 mg nightly for insomnia. An increase to 50 mg is not recommended at this time due to his previous experience with adverse effects, including palpitations and orthostatic symptoms. (2) MDD (major depressive disorder), recurrent episode, moderate: Code(s): F33.1 - Major depressive disorder, recurrent, moderate Category: Medical Plan: Patient continues to see a mental health therapist, will be starting weekly therapy sessions starting in December. Patient feels trazodone has been somewhat helpful Medications: Refilled trazodone 50 mg PO BEDTIME 30 tabs 2RF 30 days F51.01 - Primary insomnia
[2025-11-22 14:38] VITALS: BP 132/60; PULSE 67; TEMP 36.2; O2SAT 99; BMI 21.4
== END 2025-11-22 14:58 | disposition home or self-care (01) ==
LOC: HO.HMCH 14:03
PROVIDERS: PCP Physician Assistant; Visit Provider Physician Assistant
DX: F51.01 Primary insomnia (principal); F33.1 Major depressive disorder, recurrent, moderate

== ENCOUNTER → 2025-11-22 14:02 | Outpatient (BNVA) | payer OTHER, SELFPAY | PROVIDERS: PCP Physician Assistant; Visit Provider Physician Assistant | DX: F51.01 Primary insomnia (principal); F33.1 Major depressive disorder, recurrent, moderate; Z13.31 Encounter for screening for depression; Z13.39 Encounter for screening examination for other mental health and behavioral disorders | CPT/HCPCS: 96127; 99212 ==

== ENCOUNTER 2025-11-28 18:58 | Outpatient (REF) | payer OTHER, SELFPAY ==
--- NOTE | ~2025-11-28 | MR_ITS ---
EXAMINATION: MR BRAIN WITHOUT IV CONTRAST HISTORY: R55 - Syncope and collapse TECHNIQUE: Sagittal T1, coronal T2 and FLAIR, and axial T1, FLAIR, T2, gradient echo, and diffusion weighted MR images of the brain were obtained. COMPARISON: Correlation is made with an unenhanced head CT dated 02/06/2023. FINDINGS: The pituitary is normal in size. The cerebellar tonsils are normally located. The brain parenchyma is unremarkable, demonstrating normal deng/white differentiation. No foci of abnormal signal intensity are identified. The ventricular system is normal in size and configuration. There is no mass effect or midline shift. No intra or extra-axial fluid collections are identified. There are no foci of restricted diffusion. Normal vascular flow voids are noted in the basilar and carotid arteries. The visualized paranasal sinuses are clear. MR/MR head/brain wo con IMPRESSION: Unremarkable MRI of the brain without contrast. Electronically signed by: Dejan Moyer MD 11/29/2025 07:32 AM [facility]
== END 2025-11-28 18:59 | disposition home or self-care (01) ==
LOC: HO.MRI 18:58
PROVIDERS: PCP Physician Assistant; Visit Provider Physician Assistant
DX: R55 Syncope and collapse (principal); R56.9 Unspecified convulsions
CPT/HCPCS: 70551

== ENCOUNTER → 2025-11-28 18:58 | Outpatient (BNV) | payer OTHER, SELFPAY | PROVIDERS: PCP Physician Assistant; Visit Provider Radiology Diagnostic Radiology | DX: R55 Syncope and collapse (principal) | CPT/HCPCS: 70551 ==